=== PATIENT | male | born 1980 | race Caucasian/White ===

== ENCOUNTER 2017-03-17 20:51 | Emergency (ER) | payer SELFPAY ==
[2017-03-17 21:13] VITALS: BP 134/76
--- NOTE | 2017-03-17 23:22 | EDM.PDOC ---
ED HPI GENERAL MEDICAL PROBLEM - General Chief Complaint: Respiratory Problem Stated Complaint: CHEST CONGESTION/COUGH/KNEE PROBLEMS Time Seen by Provider: 03/17/17 23:22 - History of Present Illness INITIAL COMMENTS - FREE TEXT/NARRATIVE: 36-year-old male presents to the emergency room with a worsening cough and congestion. This is been going on for the last couple of weeks. He has a lot of sinus congestion and drainage he is clearing a lot of yellowish-green discharge from his nose. His cough is getting worse he says it reminds him of having walking pneumonia. He is not aware of any fevers or chills. He has not had any chest pain chest pressure breathing difficulties or shortness of breath. Past medical history is negative for heart problems diabetes high blood pressure. 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 Patient complains of right- sided knee discomfort he tore a muscle in here sometime back and has not had follow-up for this. This is been an ongoing problem for him. Discussed the situation with him he's not to be here long enough to get follow-up for so he elects not to do anything with it at this time. Throat Pain Score (Numeric/FACES): 10 - Related Data Allergies Allergy/AdvReac Type Severity Reaction Status Date / Time acetaminophen [From Tylenol] Allergy Cannot Verified 03/17/17 21:10 Remember ibuprofen Allergy Swelling Verified 03/17/17 21:10 Penicillins Allergy Swelling Verified 03/17/17 21:10 Home Meds: Home Meds guaiFENesin/Dextromethorphan [Tussin DM Cough & Chest] 10 ml PO ASDIRECTED PRN 03/17/17 [History] Minocycline [Minocin] 100 mg PO BID #28 cap 03/18/17 [Rx] Past Medical History HEENT History: Reports: Impaired Vision Other HEENT History: Glasses Social & Family History - Tobacco Use Smoking Status *Q: Current Every Day Smoker Years of Tobacco use: 15 Packs/Tins Daily: 0.5 - Recreational Drug Use Recreational Drug Use: Yes Recreational Drug Type: Reports: Cocaine, Marijuana/Hashish Other Recreational Drug Type: No used in 15 yrs Recreational Drug Use Frequency: Not Used In Over 6 Months ED ROS GENERAL - Review of Systems Review Of Systems: See Below Constitutional: Reports: No Symptoms HEENT: Reports: Ear Pain, Rhinitis, Sinus Problem Respiratory: Reports: No Symptoms, Cough. Denies: Shortness of Breath, Wheezing Cardiovascular: Denies: Chest Pain GI/Abdominal: Reports: No Symptoms : Reports: No Symptoms Musculoskeletal: Reports: No Symptoms Skin: Reports: No Symptoms Neurological: Reports: No Symptoms ED EXAM, GENERAL - Physical Exam Exam: See Below Exam Limited By: No Limitations General Appearance: Alert, No Apparent Distress Eye Exam: Bilateral Eye: Normal Inspection Ears: Normal External Exam, Normal Canal, Hearing Grossly Normal Nose: Normal Inspection, Clear Rhinorrhea Throat/Mouth: Normal Inspection, Normal Oropharynx, No Airway Compromise, Other (He has significant right frontal sinus discomfort with percussion. Right maxillary is slightly worse than left.) Respiratory/Chest: No Respiratory Distress, Lungs Clear, Normal Breath Sounds Cardiovascular: Regular Rate, Rhythm, No Edema, No Murmur Course - Vital Signs Last Recorded V/S: Last Vital Signs Temp 37.3 C 03/17/17 21:11 Pulse 84 03/17/17 21:11 Resp 18 03/17/17 21:11 BP 134/76 03/17/17 21:11 Pulse Ox 100 03/17/17 21:11 - Orders/Labs/Meds Orders: Active Orders 24 hr Category Date Time Status Chest 2V [CR] Stat Exams 03/17/17 23:35 Taken - Re-Assessments/Exams Free Text/Narrative Re-Assessment/Exam: 03/18/17 00:25 Chest x-ray negative will put on minocycline 100 mg twice a day for 14 days Departure - Departure Time of Disposition: 00:25 Disposition: Home, Self-Care 01 Clinical Impression: Sinusitis - Discharge Information Prescriptions: Minocycline [Minocin] 100 mg PO BID #28 cap Forms: ED Department Discharge Additional Instructions: Return to the emergency room with any questions or problems or any worsening symptoms. Given started on minocycline this is an antibiotic take 1 twice daily until all gone. Follow-up in the Hospital clinic if needed. [id number] - My Orders Last 24 Hours: My Active Orders 03/17/17 23:35 Chest 2V [CR] Stat - Assessment/Plan Last 24 Hours: My Active Orders 03/17/17 23:35 Chest 2V [CR] Stat
[2017-03-18] MEDS ORDERED: Doxycycline 100 MG Cap PO ONE (00:28)
--- NOTE | 2017-03-18 08:21 | CR ---
Chest: Two views of the chest were obtained. Comparison: No previous chest x-ray. Central lung markings are slightly increased most likely representing mild bronchitis. Lungs otherwise are clear. Mild degenerative change scattered within the spine. Impression: 1. Probable bronchitis. Diagnostic code #3
== END 2017-03-18 00:47 | disposition home or self-care (01) ==
LOC: JD.ED 20:51
DX: J32.9 Chronic sinusitis, unspecified (principal); F17.210 Nicotine dependence, cigarettes, uncomplicated; Z88.0 Allergy status to penicillin; Z88.6 Allergy status to analgesic agent
CPT/HCPCS: 71020; 99283; A9270